=== PATIENT | female | born 1980 | race Hispanic/Latino ===

== ENCOUNTER 2023-04-01 14:20 | Emergency (ER) | payer OTHER, SELFPAY ==
--- NOTE | ~2023-04-01 | US_ITS ---
EXAMINATION: US OB <=14 wk fetus w TV INDICATION: Bleeding, advanced maternal age, status post right oophorectomy. TECHNIQUE: Sonography of the pelvis was performed by transabdominal and transvaginal techniques. COMPARISON: None. RESULT: Uterus: 9.5 x 4.8 x 5.8 cm. Anteverted. Homogenous myometrium. Dilated right uterine veins. Intrauterine gestational sac: Single present. Mean Sac Diameter: 1.39 cm, corresponding gestational age 6 week 2 days. Yolk sac: Present, measuring 0.4 cm . Embryo: Single present. Wilson rump length: 1.2 cm, corresponding gestational age 7 weeks, 3 days. G estational heart rate: absent . Subgestational hematoma: Absent . Right ovary: Surgically absent. No adnexal mass. Left ovary: 2.5 x 1.8 x 1.7 cm. Vascular flow is present. No adnexal mass. Pelvis free fluid: None. IMPRESSION: No heart motion detected at a crown-rump length of 1.2 cm, a finding diagnostic of fa ilure. Dilated right uterine veins as can be seen with pelvic congestion. Reviewed, dictated and finalized at location K. TING PRESS MACHINE OPERATOR IMPRESSION: No heart motion detected at a crown-rump length of 1.2 cm, a finding diag nostic of failure. Dilated right uterine veins as can be seen with pelvic congestion.
[2023-04-01 14:40] VITALS: BP 117/58; PULSE 77; RESP 18; TEMP 36.7
--- NOTE | 2023-04-01 16:24 | ED.FEMALEGU ---
HPI - Female Genitourinary General Chief complaint: Vaginal Bleeding Stated complaint: vaginal bleeding Time Seen by Provider: 04/01/23 16:01 Source: patient Mode of arrival: ambulatory Limitations: no limitations History of Present Illness HPI Narrative: Patient is 42 years old female presents with vaginal bleed noticed while wiping few hours ago. Last menstruation at the end of January 2023. Patient tested positive for at home few days ago. Patient is 4, para 3 0 Currently complaining of slight lower back pain, she denies any fever, chills, nausea, vomiting or abdominal pain. Related Data Allergies Allergy/AdvReac Type Severity Reaction Status Date / Time No Known Allergies Allergy Verified 03/27/19 21:19 Review of Systems Review of Systems: All systems reviewed & are unremarkable except as noted in HPI and below PMFSH Social History Social History Smoking status: Never smoker Exam Narrative: General appearance: Well-developed, well-nourished Skin: Normal color Head: Normocephalic, nontraumatic Eyes: Clear conjunctiva ENT: Oropharynx normal, ears normal, nose normal Neck: Supple, nontender Chest and respiratory: Airway patent, no respiratory distress, no accessory muscle use Heart: Regular rate/rhythm Abdomen: Soft, nontender, no organomegaly, quiet bowel sounds Vascular: Normal peripheral pulses, normal capillary refill. Musculoskeletal: Normal range of motion, nontender back Neurologic: Alert and oriented ?3, INFORMATION ENGINEER is normal as tested, no gross motor deficit : External Female Exam: normal external appearance Speculum Exam - Vagina: normal appearance of the vagina and vaginal bleeding (SCANT DARK BLOOD AROUND THE CERVIX,) Speculum Exam - Cervix: normal appearance of the cervix and Cervical os closed Bimanual Exam- Adnexa, other: no masses Course Vital Signs Vital signs: Vital Signs Temperature 36.7 C 04/01/23 14:40 Pulse Rate 77 04/01/23 14:40 Respiratory Rate 18 04/01/23 14:40 Blood Pressure 117/58 L 04/01/23 14:40 Temperature 36.7 C 04/01/23 14:40 Pulse Rate 77 04/01/23 14:40 Respiratory Rate 18 04/01/23 14:40 Blood Pressure 117/58 L 04/01/23 14:40 MDM - Female Genitourinary MDM Narrative Medical decision making narrative: PATIENT PRESENTS WITH THE ABOVE SYMPTOMS VITAL SIGNS AT ON ARRIVAL IS STABLE PHYSICAL EXAMINATION SHOWED SLIGHT SCANT DARK BLOOD AROUND THE CERVIX, CLOSED CERVIX BLOOD WORKUP SHOWED BETA HCG, QUANTITATIVE 6914. PELVIC ULTRASOUND SHOWED FINDINGS CONSISTENT WITH FAILURE. PATIENT IS SCHEDULED SEE HER OBGYN ON THE OF THIS MONTH. WAS ADVISED TO REST, INCREASE FLUID INTAKE AND COME BACK TO THE EMERGENCY ROOM IN CASE OF HEAVY VAGINAL BLEEDING OR ANY NEW SYMPTOMS Differential Diagnosis Differential diagnosis: Likely other (THREATENED , INCOMPLETE ) Medical Records Attestation: I reviewed the patient's medical records. Lab Data Attestation: I reviewed the patient's lab results. 04/01/23 16:36 Labs: Lab Results 04/01/23 04/01/23 Range/Units 16:36 16:51 WBC 10.5 H (4.5-10.0) K/mm3 RBC 4.97 (4.2-5.4) M/mm3 Hgb 13.2 (12.0-15.0) g/dL Hct 42.9 (37.0-47.0) % MCV 86.3 (80-100) fl MCH 26.6 (26-34) pg MCHC 30.8 L (32-36) g/dl RDW 14.2 (11.5-14.5) % Plt Count 300 (150-375) k/mm3 MPV 11.3 H (7.4-10.4) fl Immature Gran % (Auto) 0.3 (0-0.5) % Neut % (Auto) 64.7 (45.5-73.1) % Lymph % (Auto) 24.9 (18.3-44.2) % [place] % (Auto) 8.8 H (2.6-8.5) % Eos % (Auto) 0.6 (0-4.4) % B
[2023-04-01 16:45] LABS: Basophils Absolute Auto 0.1 K/mm3 (0.0-0.1); Basophils Percent Auto 0.7 % (0.2-1.2); Eosinophils Absolute Auto 0.1 K/mm3 (0-0.3); Eosinophils Percent Auto 0.6 % (0-4.4); Hematocrit 42.9 % (37.0-47.0); Hemoglobin 13.2 g/dL (12.0-15.0); Immature Granulocyte Absolute 0.03 K/mm3 (0.00-0.031); Immature Granulocyte Percent A 0.3 % (0-0.5); Lymphocytes Absolute Auto 2.62 K/mm3 (0.9-3.2); Lymphocytes Percent Auto 24.9 % (18.3-44.2); Mean Corpuscular HGB Conc 30.8 g/dl (32-36); Mean Corpuscular Hemoglobin 26.6 pg (26-34); Mean Corpuscular Volume 86.3 fl (80-100); Mean Platelet Volume 11.3 fl (7.4-10.4); Monocytes Absolute Auto 0.9 K/mm3 (0.1-0.6); Monocytes Percent Auto 8.8 % (2.6-8.5); Neutrophils Absolute Auto 6.8 K/mm3 (1.3-6.7); Neutrophils Percent Auto 64.7 % (45.5-73.1); Platelet Count Result 300 k/mm3 (150-375); Red Blood Count 4.97 M/mm3 (4.2-5.4); Red Cell Distribution Width 14.2 % (11.5-14.5); White Blood Count 10.5 K/mm3 (4.5-10.0)
[2023-04-01 17:12] LABS: Appearance Urine Cloudy (Clear); Bacteria Urine Rare /hpf; Bilirubin Urine Negative (Negative); Blood Urine 3+ (Negative); Color Urine Yellow (Yellow); Glucose Urine UA Negative (Negative); Ketones Urine Negative (Negative); Leukocyte Esterase Ur Trace LEU/UL (Negative); Need Manual Microscopic Reviewed; Nitrate Urine Negative (Negative); Non Pathogenic Casts 0-2; Protein Urine Negative (Negative); RBC Urine 51-100 /hpf (0-2); Specific Grav Ur 1.005 (1.001-1.035); Squamous Epithelial Cell Urine None seen /hpf (Few); Urobilinogen Urine 0.2 mg/dL (<2.0); WBC Urine 0-5 /hpf
[2023-04-01 17:13] LABS: Add Urine Microscopic? YES
[2023-04-01 18:51] VITALS: BP 120/68; PULSE 72; RESP 16; O2SAT 100
== END 2023-04-01 18:54 | disposition home or self-care (01) ==
PROVIDERS: Emergency Provider Emergency Medicine; PCP Physician Assistant
DX: O03.4 Incomplete spontaneous abortion without complication (principal)
CPT/HCPCS: 36415; 76801; 76817; 81001; 81025; 84702; 85025; 85461; 86850; 86900; 86901; 99284

== ENCOUNTER 2025-03-20 11:02 | Outpatient (CLI) | payer OTHER, SELFPAY ==
--- NOTE | ~2025-03-20 | XR_ITS ---
Lumbar spine series Indication: Chronic left-sided low back pain Comparison: None Technique: 3 views lumbar spine Findings: 6 nonrib-bearing lumbar-type vertebral bodies. Mild superior endplate height loss of L3 and L4, if counting from L6 up. No acute fracture. No listhesis. Disc spaces maintained. No significant degenerative changes. SI joints congruent. Sacrum intact. IMPRESSION: 1. No acute findings. Reviewed, dictated and finalized at location R. DOMETER INSPECTOR IMPRESSION: 1. No acute findings.
--- OUTSIDE RECORDS SUMMARY | 2025-03-20 11:58 | XMS_ITS | Clinical Summary ---
Author Organization [facility] Address [address] [place] [address] Care Team Providers Care Sporting Goods Salesperson Name Role Phone Unavailable Primary Care Provider Unavailabl e Source Comments [facility],non-owned Affiliates and Associated Physician Practices is amultiple site organization consisting of ambulatory clinics and hospital sitesin [place], [place], [place] and [place]. This disclosure is being madepursuant to the Care Everywhere program and may not contain all information available regarding this patient. Last updated 18.[facility] Allergies No known active allergies Medications * Be aware that medications may not be up to date on this document. Alwaysverify current medications with the patient. calcium carbonate (CALTRATE) 600 MG tablet Take 1 Tab by mouth daily with food Active Vit-Fe Fumarate-FA ( VITAMIN) 28-0.8 MG tablet Take 1 Tab by mouth once daily Active acyclovir (ZOVIRAX) 400 MG tablet Take 400 mg by mouth once daily Active ursodiol (ACTIGALL) 300 MG capsule Take 300 mg by mouth 3 times daily with meals Active hydrOXYzine hcl (ATARAX) 10 MG tablet Take 1 Tab by mouth 4 times daily as needed for Itching 90 Tab 0 01/26/2015 Active ibuprofen (MOTRIN) 600 MG tablet Take 1 Tab by mouth every 6 hours as needed for Pain 60 Tab 2 01/26/2015 Active docusate sodium (COLACE) 100 MG capsule Take 1 Cap by mouth 2 times daily 60 Cap 2 01/26/2015 Active Active Problems Patient Care Coordination No te Formatting of this note migh t be different from the original. Lab work found in media tab Problem Noted Date Diagnosed Date Encounter for visit 03/20/2015 Supervision of high-risk 01/22/2015 Overview (01/23/2015): O+/I/-/-, NR GCT wnl GBS neg Adnexal mass 01/22/2015 Overview (01/23/2015): Last measured on 01/16 as septated cyst measured 7 x 3.6 x 4.2 cm Cholestasis of in third trimester 01/09 Overview (01/23/2015): Desires (vaginal after ) tria l 12/15/2014 Persian speaking patient 12/15/2014 Overview (01/23/2015): History of delivery 12/15/2014 Overview (01/23/2015): At term for breech presentation Consented for TOLAC, rCS on admission On LD pitocin Cervix now /-3 Conley bulb placed now without difficulty Immunizations Immunization Administration Dates Next Due TDAP (7yrs+) 01/26/2015 Family History Medical History Relation Name Comments Diabetes Mother Hypertension Mother Relation Name Status Comments Father Alive Mother Alive Social History Tobacco Use Types Packs/Day Years Used Date Smoking Tobacco: Never Alcohol Use Standard Drinks/Week Comments No 0 (1 standard drink = 0.6 oz pur e alcohol) Comments No Sex and Gender Information Value Date Recorded Sex Assigned at Not on file Legal Sex Female 7:50 AM CDT Gender Identity Not on file Sexual Orientation Not on file Last Filed Vital Signs Vital Sign Reading Time Taken Comments Blood Pressure 117/67 03/20/2015 9:59 AM TRAPEZE PERFORMER Pulse 68 01/26/2015 7:55 AM CDT Temperature 36.8 C (98.2 F) 01/26/2015 7:55 AM CDT Respiratory Rate 16 01/26/2015 7:55 AM CDT Oxygen Saturation 99% 01/26/2015 7:55 AM CDT Inhaled Oxygen Concentration - - Weight 57.8 kg (127 lb 6.4 oz) 03/20/2015 9:59 A M TRAPEZE PERFORMER Height 160 cm (5' 3) 01/22/2015 8:08 PM CDT Body Mass Index 22.57 01/22/2015 8:08 PM CDT Plan of Treatment Health Maintenance Due Date Last Done Comments LIPID TESTING 1981 MAMMOGRAM 1981 HIV SCREENING 1996 HEPATITIS C SCREENING 09/14/1999 HEPATITIS B VACCINE (1 of 3 - 19+ 3-dose series) 2000 HPV VACCINE (1 - 3-dose SCDM series) 2008 DEPRESSION SCREENING 05/11/2024 COVID-19 VACCINE (1 - 2023-2 5 season) 2025 INFLUENZA VACCINE (#1) 2025 DTAP/TDAP/TD VACCINES (2 - T d or Tdap) 01/26/2025 01/26/2015 ZOSTER VACCINE (1 of 2) 09/19/2031 HIB VACCINE Aged Out No longer eligi ble based on patient's age to complete this topic MENINGOCOCCAL (Group B) VACC INE SHARED DECISION-MAKING Aged Out No longer eligibl e based on patient's age to complete this topic MENINGOCOCCAL GROUPS A/C/Y/W VACCINE Aged Out No longer eligible b ased on patient's age to complete this topic PNEUMOCOCCAL VACCINE Aged Out No long er eligible based on patient's age to complete this topic Insurance [employer] Advance Directives * Full Code (Latest Code Status on File) Date Activated Date Inactivated Comments 01/22/2015 7:10 PM 01/26/2015 6:26 PM
--- OUTSIDE RECORDS SUMMARY | 2025-03-20 11:58 | XMS_ITS | Clinical Summary ---
Author Organization [facility] Address [address] [place] [address] Care Team Providers Care Field Foreman Name Role Phone Unavailable Primary Care Provider Unavailabl e Social History Tobacco Use Types Packs/Day Years Used Date Smoking Tobacco: Never Assessed Comments Unknown Sex and Gender Information Value Date Recorded Sex Assigned at Not on file Legal Sex Female 5:22 PM CDT Gender Identity Not on file Sexual Orientation Not on file Plan of Treatment Health Maintenance Due Date Last Done Comments Cervical Cancer Screening Pa p Smear (Age 30 to 64) Every 3 Years 1981 Annual Physical 1984 Hepatitis C 09/19/1999 DTaP, Tdap and Td Vaccines ( 1 - Tdap) 2000 Hepatitis B Vaccines (1 of 3 - 19+ 3-dose series) 2000 HPV Vaccines (1 - 3-dose SCD M series) 2008 Cervical Cancer Screening Pa p with HPV Testing (Age 30 to 64) Every 5 Years 09/19/2011 Cervical Cancer Screening with HPV 09/19/2011 Mammogram Screening 2021 COVID-19 Vaccine (2024-2 6 season) 2025 Influenza Adult (#1) 2025 Hepatitis A Vaccines Aged Out No long er eligible based on patient's age to complete this topic Meningococcal B Vaccine Aged Out No l onger eligible based on patient's age to complete this topic Meningococcal Vaccine Aged Out No shaggy jenn eligible based on patient's age to complete this topic Pneumococcal Vaccine: Pediat rics (0 to 5 Years) and At-Risk Patients (6 to 49 Years) Aged Out No longer eligible b ased on patient's age to complete this topic RSV Immunizations Under 20 Months Aged Out No longer eligible based on patient's age to complete this topic
== END 2025-03-20 11:03 | disposition home or self-care (01) ==
PROVIDERS: PCP Physician Assistant
DX: M54.59 Other low back pain (principal)
CPT/HCPCS: 72100